=== PATIENT | male | born 1960 | race Two or more races ===

== ENCOUNTER 2025-04-10 12:52 | Emergency (ER) | payer MEDICARE, SELFPAY ==
[2025-04-10 12:53] VITALS: BMI 32.8
[2025-04-10 12:56] VITALS: BP 163/100
[2025-04-10] MEDS: TORADOL 15 MG IV (13:27)
[2025-04-10] MEDS: ZOFRAN 4 MG IV (13:28)
[2025-04-10] MEDS: NSS 1000 IV (13:49)
[2025-04-10] MEDS: FLOMAX 0.4 MG PO (13:56)
[2025-04-10 14:09] LABS: Hematocrit 44.4 % (39.0-52.0); Hemoglobin 15.0 g/dL (13.0-18.0); Mean Corp Hgb Conc. 33.8 g/dL (33.0-37.0); Mean Corpuscular Volume 90.8 fL (80.0-94.0); Nucleated Red Blood Cells % 0 % (-); Platelet Count 271 10^3/uL (130-400); Red Cell Dist. Width 13.1 % (11.5-14.5)
--- NOTE | 2025-04-10 14:24 | ED.GENMED ---
History of Present Illness
General
Chief Complaint: Flank Pain
Time Seen by Provider: 04/10/25 13:40
History of Present Illness
History of Present Illness:
64-year-old male with history of hyperlipidemia presents to the emergency department for evaluation of left flank pain that started approximately 2 hours prior to arrival. Feels comparable to past bout of kidney stone, he states this occurred about
8 years ago and did not require any interventions. He passes spontaneously. Prior to my evaluation he was given IV Toradol with improvement in symptoms. Currently rating pain 1-2 out of 10. No fevers or chills. No dysuria or hematuria
Past History
Past History
ED Past Medical History: Hypercholesterolemia
Social History
Tobacco: Non-smoker
Alcohol: Occasional
Family History
Family History: Other (Kidney stone)
Review of Systems
Review of Systems
Allergies reviewed?: Yes
All Other Systems: ROS reviewed and negative except as documented in HPI and ROS
Phy Exam
Physical Exam
Physical Exam:
GEN: Well appearing, NAD, WDWN
HEENT: Oral mucosa moist, no scleral icterus
Cardiac: Regular rate
Lung: No respiratory distress, no tachypnea
MSK: No gross deformity or injuries
Skin: Good color, no pallor or jaundice, no rashes
Neuro: AO x3, moves all extremities freely
Psych: Calm, cooperative
Course
Orders/Labs/Results
Orders:
Orders
04/10/25 13:21
Ketorolac [Toradol] 15 mg .ROUTE .STK-MED ONE
Ondansetron Injectable [Zofran] 4 mg .ROUTE .STK-MED ONE
04/10/25 13:27
Ketorolac [Toradol] 15 mg IV NOW STA
04/10/25 13:28
Ondansetron Injectable [Zofran] 4 mg IV NOW STA
04/10/25 13:44
0.9% Sodium Chloride 1000 ml [Nss] 1,000 ml IV BOLUS
Tamsulosin [Flomax] 0.4 mg PO NOW STA
04/10/25 13:51
Complete Blood Count/With Diff Urgent
Comprehensive Metabolic Panel Urgent
Urinalysis Reflex To Culture Urgent
Date Specimen was Collected: 04/10/25
Time Specimen was Collected: 13:48
Abnormal Lab Results
04/10/25
13:51
Absolute Lymphs (auto) 3.5 H 10^3/uL
(1.2-3.4)
Sodium 134 L mmol/L
(135-145)
Glucose 106 H mg/dl
(70-99)
Total Bilirubin 1.5 H mg/dl
(0.2-1.3)
Alkaline Phosphatase 133 H U/L
(38-126)
04/10/25 13:51
04/10/25 13:51
Vital Signs
Initial and Last Documented VS:
Initial Vital Signs
Temp Pulse Resp BP Pulse Ox
97.5 F 67 16 163/100 98
04/10/25 12:56 04/10/25 12:56 04/10/25 12:56 04/10/25 12:56 04/10/25 12:56
Last Documented Vital Signs
Temp Pulse Resp BP Pulse Ox
97.5 F 67 16 163/100 98
04/10/25 12:56 04/10/25 12:56 04/10/25 12:56 04/10/25 12:56 04/10/25 14:25
MDM/Problems Addressed
MDM/Problems Addressed:
Patient presenting with flank pain comparable to prior kidney stone. Discussed benefit of imaging at this time versus withholding of imaging given clinical stability and the patient is amenable to withholding scan and presumptive treatment. Will
treat with NSAIDs and Flomax
*Pulse Oximetry
SaO2: 98
Oxygen Mode of Delivery: Room air
Patient hypoxic: no
*Critical Care Note
Total Time (30-74mins, 75-104mins- exclusive of procedures): Not Applicable
ED Attending Note
-
Portions of this chart may have been created with voice recognition software.� Occasional wrong word or��sound alike� substitutions may have occurred due to the inherent limitations of voice recognition software.
Discharge Plan
Departure
Patient Disposition: Home (Routine Discharge)
Date of Disposition: 04/10/25
Time of Disposition: 14:54
Patient with high blood pressure during this ER visit?: No
Discharge Problem:
Kidney stone
Instructions: Kidney Stones (DC)
Prescriptions:
New
ketorolac 10 mg tablet
10 mg PO Q8H PRN (Reason: Pain) Qty: 15 0RF
Rx Instructions:
maximum total duration of 5 days from all oral, intranasal, or parenteral formulations
tamsulosin [Flomax] 0.4 mg capsule
0.4 mg PO HS Qty: 10 0RF
No Action
atorvastatin 10 MG tablet
1 tab PO DAILY
oxycodone-acetaminophen 5 MG/325 MG tablet
1 tab PO Q4HPRN PRN (Reason: pain) Qty: 20 0RF
Referrals:
Sandro Scales MD [Family Provider, Internal Medicine]
Interventions
Interventions:
*Risk Screen - Suicide Last Done: 04/10/25 12:54
*General Assessment Last Done: 04/10/25 12:59
*Neglect/Abuse Screening Last Done: 04/10/25 12:54
*ED- Fall Risk Assessment Last Done: 04/10/25 12:59
LU-Fzxojg-Ecraxtfdpy Assessment Last Done: 04/10/25 12:59
ED-Male Genitourinary Assessment Last Done: 04/10/25 12:59
Discharge Date and Time
Print Language: BULGARIAN
[2025-04-10 14:32] LABS: ALT (SGPT) 43 U/L (0-50); AST (SGOT) 33 U/L (17-59); Albumin 4.8 g/dl (3.5-5.0); Alkaline Phosphatase 133 U/L (38-126); Blood Urea Nitrogen 19 mg/dl (9-20); Calcium 9.5 mg/dl (8.4-10.2); Carbon Dioxide 25 mmol/L (22-30); Chloride 102 mmol/L (98-107); Estimated Creatinine Clearance 81 ml/min; Glucose 106 mg/dl (70-99); Potassium 4.4 mmol/L (3.5-5.1); Sodium 134 mmol/L (135-145); Total Protein 8.1 g/dl (6.3-8.2); eGFR > 60.00
[2025-04-10 15:03] LABS: Urine Character Slightly Cloudy (Clear)
[2025-04-10 15:43] VITALS: BP 134/88
[2025-04-10 17:30] LABS: Urine Squamous Cell 0-2 /LPF (Few)
[2025-04-10 17:31] LABS: Urine Red Blood Cell 80-90 /HPF (0-2); Urine White Cell 0-2 /HPF (0-5)
== END 2025-04-10 15:45 | disposition home or self-care (01) ==
LOC: EMR 12:52
PROVIDERS: Physician Assistant; EMERGENCY PHYSICIAN Emergency Medicine; FAMILY PHYSICIAN Internal Medicine
DX: N20.0 Calculus of kidney (principal); E78.00 Pure hypercholesterolemia, unspecified; Z87.442 Personal history of urinary calculi
CPT/HCPCS: 99284; 96374; 96375; 80053; 81003; 81015; 85025